=== PATIENT | female | born 1990 | race Caucasian/White ===

== ENCOUNTER 2016-12-26 16:18 | Emergency (ER) | payer BC ==
[~2016-12-26] VITALS: Ht 167.6 cm; Wt 58.2 kg
--- OUTSIDE RECORDS SUMMARY | 2016-12-26 16:25 | XMS REPORT | Summary of Care ---
Author Author Claribel Conklin Organization Unknown Address [address] [place], [place] [id number] Phone Unavailable Care Team Providers Care System Trainer Name Role Phone Kira Rosas M.D. Unavailable Unavailable Claribel Conklin Unavailable Unavailable Ayde Rosas PP Unavailable Unavailable Unavailable Functional Status Functional Status Health Issues Name Dates Details Functional status health issues are not documented Status: Cognitive Status Health Issues Name Dates Details Cognitive status health issues are not documented Status: Problems Name Dates Details Dysuria (788.1, R30.0) Status: Active Allergic rhinitis (477.9, J30.9) Status: Active Urinary tract infection (599.0, N39.0) Status: Active Pityriasis rosea (696.3, L42) Status: Active Acute otitis media (382.9, H66.90) Status: Active Medications Name Dates Details Pantoprazole Sodium 40 MG Oral Tablet Delayed Release TAKE 1 TABLET 30 MINUTES BEFORE BREAKFAST DAILY. Quantity: 30 Refills: 3 Kira Rosas M.D. Started 12-Jun-2013 ActiveTriamcinolone Acetonide 0.1 % External Cream apply to rash bid as needed Quantity: 60 Refills: 0 Kira Rosas M.D. Started 14-Jul-2014 ActiveAmoxicillin 500 MG Oral Capsule TAKE 2 CAPSULES TWICE DAILY UNTIL GONE. Quantity: 40 Refills: 0 Claribel MinADarcy Started 16-Apr-2015 Active Allergies and Adverse Reactions Name Dates Details No Known Allergies Status: Active Procedures Procedure Dates Details Procedures not documented Immunization Name Dates Details Immunizations not documented Social History Smoking StatusUnknown if ever smoked Vital Signs Date Test Result Details 16-Apr-2015 09:26 BP Systolic 112 mm[Hg] Status: BP Diastolic 66 mm[Hg] Status: Temperature 98.7 f Status: Heart Rate 66 /min Status: O2 SAT 98 % Status: Results Date Description Value Details Results not documented Plan of Care Planned Observations Name Dates Details Planned Goals not documented Goal Instructions Instructions not documented Encounters Appointment; Claribel Min Encounter Diagnosis: Problem not documented On 16-Apr-2015 09:15 Appointment; Vaibhav Eckert Encounter Diagnosis: Problem not documented On 04-Oct-2014 08:45 Appointment; Kria Rosas Encounter Diagnosis: Problem not documented On 19-Jul-2014 15:30 Appointment; Kira Rosas Encounter Diagnosis: Problem not documented On 14-Jul-2014 10:45 Appointment; Rosaura Coronel Encounter Diagnosis: Problem not documented On 13:45 Appointment; Kira Rosas Encounter Diagnosis: Problem not documented On 24-Dec-2013 09:15 Appointment; Kira Rosas Encounter Diagnosis: Problem not documented On 04-Nov-2013 09:00 Appointment; Kira Rosas Encounter Diagnosis: Problem not documented On 30-Sep-2013 14:15 Appointment; Kira Rosas Encounter Diagnosis: Problem not documented On 12-Jun-2013 15:15
[2016-12-26] MEDS ORDERED: KETOROLAC 30 MG/ML (TORADOL) 1 ML VIAL IM ONE (16:50)
[2016-12-26 18:02] VITALS: BP 133/76
--- NOTE | 2016-12-27 07:18 | Diagnostic Imaging Report ---
Clinical indication: Patient with chest pain and left shoulder and arm pain. Exam: Chest x-ray PA and lateral views. Comparisons: None. Findings: Lungs/pleura: Lungs are clear. There is no pneumothorax. There is no pleural effusion. Mediastinum: Unremarkable. Pulmonary vasculature: Unremarkable. Heart: Unremarkable. Bones/extrathoracic soft tissue: There is dextroscoliosis of lower thoracic spine and levoscoliosis of lumbar spine. Impression: 1: There is no radiographic evidence of acute cardiopulmonary process. 2: S-shaped scoliosis of the thoracolumbar spine. Dictated by: Dictated on workstation # [id number]
== END 2016-12-26 18:04 | disposition home or self-care (01) ==
LOC: ED 16:21
DX: M25.512 Pain in left shoulder (principal)
CPT/HCPCS: 71020; 93005; 96372; 99282; J1885; 93010; 99283